=== PATIENT | male | born 1965 | race Caucasian/White ===

== ENCOUNTER → 2016-06-25 | Outpatient (CLI) | payer OTHER ==
--- NOTE | 2016-06-25 15:51 | US ---
Right Lower Extremity Venous Duplex Doppler Sonography CLINICAL HISTORY: 50-year-old male with right barajas pain following an ankle injury. Rule out DVT. ICD 10 Diagnostic Code: M79.661. TECHNIQUE: Duplex sonography of the right lower extremity was obtained, from the level of the right g roin to the calf with graded compression maneuvers and color and spectral Doppler analysis utilized; cursory evaluation of the left common femoral vein was also obtained for comparison purposes. COMPARISON STUDY: None. FINDINGS: There is normal compressibility, phasic venous flow, and response to augmentation in the ri ght common femoral vein, superficial femoral vein, proximal profunda femoris vein, popliteal vein, an d the visualized posterior tibial and peroneal veins. The greater saphenous vein is compressible. The re is a normal appearance to the popliteal fossa, with no Butterfield's cyst. IMPRESSION: There is no sonographic evidence of deep or superficial venous thrombosis in the right lo wer extremity. As requested, results were called Milagro, at the office of Dr. Roberth Salcido. A Document Only message has been documented for ROBERTH SALCIDO in the [employer] [facility] Result system on 06/25/2016 15:47, Message ID [id number].
--- NOTE | 2016-06-25 17:57 | DX ---
Right Ankle, 3 long views HISTORY: Sprain last week, continued pain and swelling up to mid tibial level Findings: Osseous structures are intact without fracture. The ankle mortise has a normal contour. The re is soft tissue swelling adjacent to the distal fibula. . Some hypertrophic cortical changes adjace nt to the distal lateral tibial metaphysis is consistent with a remote interosseous ligament injury. Incidentally noted is a small plantar calcaneal spur and a prominent superior talar beak. Impression: Lateral soft tissue swelling. Otherwise nothing acute identified. If there is concern for a high ankle sprain, then MRI might be useful to assess the integrity of the interosseous ligament
== END ==
LOC: BMCIMAGING 15:02
PROVIDERS: ATTEND Podiatrist Foot & Ankle Surgery
DX: S99.911A Unspecified injury of right ankle, initial encounter (principal)